=== PATIENT | female | born 1970 | race Caucasian/White ===

== ENCOUNTER → 2020-08-11 | Outpatient (CLI) | payer BC ==
--- NOTE | 2020-08-15 09:50 | MM ---
Reason for exam: screening (asymptomatic). Last mammogram was performed 13 years and 2 months ago. History: Breast lifts of both breasts, 2008. Reductions of both breasts, 2008. Physical Findings: A clinical breast exam by your physician is recommended on an annual basis and results should be correlated with mammographic findings. MG Screening Mammo w CAD Bilateral CC and MLO view(s) were taken. Prior study comparison: June 24, 2007, bilateral workup diagnostic mammogram. June 19, 2007, bilateral screening mammogram w/CAD. The breast tissue is heterogeneously dense. This may lower the sensitivity of mammography. Focal asymmetry left upper outer quadrant. ASSESSMENT: Benign, BI-RAD 2 RECOMMENDATION: Routine screening mammogram of both breasts in 1 year.
== END | disposition home or self-care (01) ==
LOC: RADMAMWWP 07:48
PROVIDERS: ATTEND Family Medicine
DX: Z12.31 Encounter for screening mammogram for malignant neoplasm of breast (principal)
CPT/HCPCS: 77067

== ENCOUNTER → 2022-10-02 | Outpatient (CLI) | payer OTHER ==
--- NOTE | 2022-10-02 07:59 | BD ---
EXAMINATION TYPE: Axial Bone Density DATE OF EXAM: 10/02/2022 CLINICAL HISTORY: 52 year old Female. ICD-10 CODE: Z78.0 POST MENOPAUSAL WITHOUT HRT Height: 65 Weight: 146.6 FRAX RISK QUESTIONS: Alcohol (3 or more units per day): no Family History (Parent hip fracture): no Glucocorticoids (More than 3mos): no (Ex: prednisone, prednisolone, methylprednisolone, dexamethasone, and hydrocortisone). History of Fracture in Adulthood: yes Secondary Osteoporosis: 1. Type 1 Diabetes: no 2. Hyperthyroidism: no 3. Menopause before 45: no 4. Malnutrition: no 5. Chronic liver disease: no Rheumatoid Arthritis: no Current Tobacco Use: no RISK FACTORS HISTORY OF: Hip Fracture (Right/Left): right wrist When: 13 years ago Surgery to Spine/Hip(right/left)/Wrist (right/left): no Family History of Osteoporosis: yes Active: yes Diet low in dairy products/other sources of calcium: yes Postmenopausal woman: yes Lost more than 2 inches in height since high school: no MEDICATIONS: Additional History: EXAM MEASUREMENTS: Bone mineral densitometry was performed using the [employer] System. Bone mineral density as measured about the Lumbar spine is: ----- L1-L4(G/cm2): 1.095 T Score Values are as follows: ----- L1: -0.6 ----- L2: -1.2 ----- L3: -0.4 ----- L4: -0.8 ----- L1-L4: -0.7 Z Score Values are as follows: ----- L1: 0.1 ----- L2: -0.5 ----- L3: 0.3 ----- L4: -0.1 ----- L1-L4: 0.0 Bone mineral density : Baseline Bone mineral density about the R hip (g/cm2): 0.848 Bone mineral density about the L hip (g/cm2): 0.867 T Score values are as follows: -----R Neck: -1.3 -----L Neck: -1.3 -----R Total: -1.3 -----L Total: -1. Z Score values are as follows: -----R Neck: -0.4 -----L Neck: -0.3 -----R Total: -0.7 -----L Total: -0.5 Bone mineral density : baseline FRAX%s: The graph provided illustrates a 11.0% chance for a major osteoporotic fx and a 0.8% chance f or the hips probability for fx in 10 years time. IMPRESSION: Normal (Values between +1 and -1 indicate normal bone mass). Consider repeating this study in 5 year s or sooner if there is some new clinical indication. NOTE: T-SCORE=SD OF THE YOUNG ADULT MEAN.
--- NOTE | 2022-10-03 09:11 | MM ---
Reason for Exam: Screening (asymptomatic). Last mammogram was performed 2 year(s) and 1 month(s) ago. Patient History: Menarche at age 11. First Full-Term at age 20. Postmenopausal. 2007, Bilateral Reduction. Risk Values: Lissa 5 year model risk: 1.0%. NCI Lifetime model risk: 7.5%. Prior Study Comparison: 06/19/2007 Bilateral Screening Mammogram, [facility]. 06/24/2007 Bilateral Diagnostic Mammogram, [facility]. 08/11/2020 Bilateral Screening Mammogram, [facility]. Tissue Density: The breast tissue is heterogeneously dense. This may lower the sensitivity of mammography. Findings: Analyzed By CAD. Stable asymmetric prominent tissue in the left breast. Stable skin lesion right breast. There is no suspicious group of microcalcifications or new suspicious mass in either breast. Overall Assessment: Negative, BI-RAD 1 Management: Screening Mammogram of both breasts in 1 year. . Patient should continue monthly self-breast exams. A clinical breast exam by your physician is recommended on an annual basis. This exam should not preclude additional follow-up of suspicious palpable abnormalities. Note on Lissa scores and lifetime risk: 1. A Lissa score greater than 3% is considered moderate risk. If this is the case, consider specialist referral to assess eligibility for a risk reducing agent. 2. If overall lifetime risk for the development of breast cancer is 20% or higher, the patient may qualify for future screening with alternating mammogram and breast MRI. Electronically signed and approved by: Oscar Jon M.D.
== END | disposition home or self-care (01) ==
LOC: RADMAMWWP 07:22
PROVIDERS: ATTEND Obstetrics & Gynecology
DX: Z12.31 Encounter for screening mammogram for malignant neoplasm of breast (principal); M85.89 Other specified disorders of bone density and structure, multiple sites; Z78.0 Asymptomatic menopausal state
CPT/HCPCS: 77063; 77067; 77080

== ENCOUNTER → 2022-10-04 | Outpatient (CLI) | payer OTHER ==
--- NOTE | 2022-10-05 09:16 | XR ---
EXAMINATION TYPE: XR abdomen 2V DATE OF EXAM: 10/04/2022 COMPARISON: 05/20/2013 HISTORY: Pain TECHNIQUE: two view abdominal series FINDINGS: The osseous structures are intact. The bowel gas pattern is nonspecific. Retained fecal debris throu ghout the colon. Calcifications in the pelvis stable and appear vascular. Slight curvature of the spi ne. Correlate for scoliosis. IMPRESSION: 1. Nonspecific abdomen. Correlate for constipation
--- NOTE | 2022-10-05 09:18 | XR ---
EXAMINATION TYPE: XR ribs RT DATE OF EXAM: 10/04/2022 COMPARISON: NONE HISTORY: Pain TECHNIQUE: 4 views of the right ribs are submitted FINDINGS: Lung mar clear with no pneumothorax. AC joint arthropathy. Visualized rib cage is intact . No acute displaced rib fracture. IMPRESSION: No acute displaced rib fracture
--- NOTE | 2022-10-05 09:40 | XR ---
"EXAMINATION TYPE: XR elbow complete LT DATE OF EXAM: 10/04/2022 COMPARISON: NONE HISTORY: Pain FINDINGS: Three views of the elbow demonstrate pathologic joint involving anterior and posterior displacement. The osseous structures are intact. There is no acute fracture or dislocation. Tiny bony density al santi the lateral epicondyle. IMPRESSION: 1. Pathologic joint effusion. Differential diagnosis would include occult fracture. Other etiologies including postarthritic or inflammatory conditions in the differential diagnosis. Recommend CT scan. A Yellow level critical message alert has been initiated for Donato Renae DO via the [employer] | Critical Results System on 10/05/2022 9:38 AM. This message alert has been sent to Donato Renae DO via the preferences provided by the clinician for the receipt of Radiology Critical Findings. Tn ssage ID [id number]."
== END | disposition home or self-care (01) ==
LOC: RADXRMAIN 15:14
PROVIDERS: ATTEND Family Medicine
DX: M25.422 Effusion, left elbow (principal); R07.81 Pleurodynia; R14.0 Abdominal distension (gaseous)
CPT/HCPCS: 74019

== ENCOUNTER → 2024-10-09 | Outpatient (CLI) | payer OTHER ==
--- NOTE | 2024-10-09 10:44 | MM ---
Reason for Exam: Screening (asymptomatic). Last mammogram was performed 2 year(s) and 1 month(s) ago. Patient History: Menarche at age 11. First Full-Term at age 20. Postmenopausal. 2007, Bilateral Reduction. Risk Values: Lissa 5 year model risk: 1.1%. NCI Lifetime model risk: 7.2%. Prior Study Comparison: 06/24/2007 Bilateral Diagnostic Mammogram, [facility]. 08/11/2020 Bilateral Screening Mammogram, [facility]. 10/02/2022 Bilateral MG 3D screening mammo w/cad, [facility]. Tissue Density: There are scattered areas of fibroglandular density. Findings: Analyzed By CAD. Right breast surgical clips. Right breast: Right breast skin thickening present. There is no suspicious group of microcalcifications or new suspicious mass. Benign-appearing calcifications right breast. Left breast: There is no suspicious group of microcalcifications or new suspicious mass. Benign-appearing calcifications left breast. Overall Assessment: Benign, BI-RAD 2 Management: Screening Mammogram of both breasts in 1 year. Clinical management for reported infection. [facility] will attempt to contact patient to return for supplemental views and ultrasound if indicated. Patient should continue monthly self-breast exams. A clinical breast exam by your physician is recommended on an annual basis. This exam should not preclude additional follow-up of suspicious palpable abnormalities. Note on Lissa scores and lifetime risk: 1. A Lissa score greater than 3% is considered moderate risk. If this is the case, consider specialist referral to assess eligibility for a risk reducing agent. 2. If overall lifetime risk for the development of breast cancer is 20% or higher, the patient may qualify for future screening with alternating mammogram and breast MRI. [facility], , 10/09/2024 10:40 AM. Electronically signed and approved by: Pa Garcia DO
--- NOTE | 2024-10-09 15:05 | MM ---
EXAM: MG 3D screening mammo w/cad DATE OF EXAM: 10/09/2024 8:17 AM COMPARISON STUDIES: 06/24/2007 Bilateral Diagnostic Mammogram, [facility]. 08/11/2020 Bilateral Screening Mammogram, [facility]. 10/02/2022 Bilateral MG 3D screening mammo w/cad, [facility]. PATIENT HISTORY: Female, 54 years old with history of Z12.31 SCREEN MAMMO; , Menarche at age 11. First Full-Term at age 20. Postmenopausal. 2007, Bilateral Reduction. , RISK CALCULATION: Lissa 5 year model risk: 1.1%. NCI Lifetime model risk: 7.2%. TISSUE DENSITY: There are scattered areas of fibroglandular density. FINDINGS: Right breast: There is no suspicious group of microcalcifications or new suspicious mass. Left breast: Stable masslike fibroglandular tissue lateral aspect on CC view. There is no suspicious group of microcalcifications or new suspicious mass. ASSESSMENT: 1 - Negative RECOMMENDATION: 1. Screening Mammogram Bilateral in 1 Year . COMMENTS: [facility] will attempt to contact patient to return for supplemental views and ultrasound if indicated. Patient should continue monthly self-breast exams. A clinical breast exam by your physician is recommended on an annual basis. This exam should not preclude additional follow-up of suspicious palpable abnormalities. Note on Lissa scores and lifetime risk: 1. A Lissa score greater than 3% is considered moderate risk. If this is the case, consider specialist referral to assess eligibility for a risk reducing agent. 2. If overall lifetime risk for the development of breast cancer is 20% or higher, the patient may qualify for future screening with alternating mammogram and breast MRI. JAN
--- NOTE | 2024-10-11 21:46 | BD ---
EXAMINATION TYPE: Axial Bone Density DATE OF EXAM: 10/09/2024 CLINICAL HISTORY: 54 years old Female. ICD-10 CODE: Z78.0 POST MENOPAUSAL W/O HRT , Additional Hist ory: Height: 65" Weight: 150lbs FRAX RISK QUESTIONS: Alcohol (3 or more units per day): No Family History (Parent hip fracture): No Glucocorticoids (More than 3mos): No (Ex: prednisone, prednisolone, methylprednisolone, dexamethasone, and hydrocortisone). History of Fracture in Adulthood: Yes Secondary Osteoporosis: 1. Type 1 Diabetes: No 2. Hyperthyroidism: No 3. Menopause before 45: No 4. Malnutrition: No 5. Chronic liver disease: No Rheumatoid Arthritis: No Current Tobacco Use: No RISK FACTORS HISTORY OF: Hip Fracture (Right/Left): No Spine Fracture: No History of Wrist Fracture: No Surgery to Spine/Hip(right/left)/Wrist (right/left): Yes right wrist MEDICATIONS: Thyroid Medications: No Osteoporosis Medications: No EXAM MEASUREMENTS: Bone mineral densitometry was performed using the [employer] System. Bone mineral density as measured about the Lumbar spine is: ----- L1-L4(G/cm2): 1.053 T Score Values are as follows: ----- L1: -1.0 ----- L2: -1.6 ----- L3: -0.6 ----- L4: -1.2 ----- L1-L4: -1.1 Z Score Values are as follows: ----- L1: -0.1 ----- L2: -0.7 ----- L3: 0.3 ----- L4: -0.4 ----- L1-L4: -0.2 Bone mineral density has: decreased -3.8% since study of: 10/02/2022 Bone mineral density about the R hip (g/cm2): 0.848 Bone mineral density about the L hip (g/cm2): 0.846 T Score values are as follows: -----R Neck: -1.4 -----L Neck: -1.6 -----R Total: -1.3 -----L Total: -1.3 Z Score values are as follows: -----R Neck: -0.3 -----L Neck: -0.5 -----R Total: -0.6 -----L Total: -0.6 Bone mineral density has: decreased -1.3% since study of: 10/02/2022 FRAX%s: The graph provided illustrates a 12.7% chance for a major osteoporotic fx and a 1.2% chance f or the hips probability for fx in 10 years time. IMPRESSION: Osteopenia (T Score between -2.5 and -1). There is slightly increased risk of fracture and the patient may be considered for treatment. Re-Screen 2-5 years. NOTE: T-SCORE=SD OF THE YOUNG ADULT MEAN. [facility], , 10/11/2024 9:44 PM
== END | disposition home or self-care (01) ==
LOC: RADBDWWP 07:45
PROVIDERS: ATTEND Physician Assistant Medical
DX: Z12.31 Encounter for screening mammogram for malignant neoplasm of breast (principal); R92.323 Mammographic fibroglandular density, bilateral breasts; M85.89 Other specified disorders of bone density and structure, multiple sites; Z78.0 Asymptomatic menopausal state
CPT/HCPCS: 77063; 77067; 77080